=== PATIENT | male | born 1995 | race Caucasian/White ===

== ENCOUNTER → 2017-02-16 | Outpatient (CLI) | payer BC ==
--- NOTE | 2017-02-16 14:58 | DIAGNOSTIC IMAGING REPORT ---
MRI OF THE RIGHT KNEE WITHOUT CONTRAST CLINICAL HISTORY: Right knee injury with laxity. Previous ACL reconstruction. COMPARISON STUDY: None. TECHNIQUE: Utilizing a 1.5 Zee magnet and dedicated coil, multiplanar, multiecho imaging of the right knee was performed without intravenous or intraarticular contrast. FINDINGS: Alignment of the right knee is anatomic. No joint effusion is present. There is no marrow edema or marrow replacement. The anterior cruciate ligament graft is intact. The posterior cruciate ligament is intact. The medial collateral ligament and lateral collateral ligament complex are also intact. There is mild chondrosis of the lateral femoral condyle. No full-thickness chondrosis is identified within the 3 compartments. There is no evidence for fracture. The medial meniscus is somewhat diminutive but no medial meniscal tear is identified. There is subtle irregularity of the undersurface of the posterior horn of the lateral meniscus. Multiple foci of susceptibility artifact are postsurgical. IMPRESSION: 1. Intact ACL graft. 2. No fracture or joint effusion of the right knee. 3. Minimal irregularity of the undersurface of the posterior horn of the lateral meniscus which may reflect a subtle lateral meniscal tear. 4. Mild chondrosis of the lateral femoral condyle. Electronically signed by: Russ Mcqueen M.D. 02/16/2017 2:57 PM Dictated Date/Time: 02/16/2017 2:49 PM
== END | disposition home or self-care (01) ==
LOC: C.MRI 13:45
PROVIDERS: ATTEND Physician Assistant
DX: S89.91XA Unspecified injury of right lower leg, initial encounter (principal); X58.XXXA Exposure to other specified factors, initial encounter

== ENCOUNTER 2017-09-07 23:46 | Emergency (ER) | payer BC ==
[~2017-09-07] VITALS: Ht 175.3 cm; Wt 88.3 kg
[2017-09-07 23:58] VITALS: TEMP 36.8; Ht 175.3 cm; Wt 88.3 kg
[2017-09-08] MEDS ORDERED: ONDANSETRON INJ 2 MG/ML 2 ML VIAL IV STA (00:14)
[2017-09-08] MEDS ORDERED: SODIUM CHLORIDE 0.9% 1000ML 1,000 ML IV STA ×2 (00:14→01:28)
[2017-09-08 00:47] LABS: BASO % 0.1 %; BASO ABS # 0.02 K/uL (0-0.2); EOS % 0.3 %; EOS ABS # 0.05 K/uL (0-0.5); HEMATOCRIT 48.3 % (42-52); HEMOGLOBIN 17.8 g/dL (14.0-18.0); IG# 0.06 K/uL (0.00-0.02); LYMPH % 2.4 %; LYMPH ABS # 0.38 K/uL (1.2-3.4); MEAN CELL VOLUME 91.1 fL (80-100); MEAN CORPUSCULAR HEMOGLOBIN 33.6 pg (25-34); MEAN CORPUSCULAR HGB CONC 36.9 g/dl (32-36); MONO % 7.1 %; MONO ABS # 1.15 K/uL (0.11-0.59); NEUT % 89.7 %; NEUT ABS # 14.45 K/uL (1.4-6.5); PLATELET COUNT 262 K/uL (130-400); RED CELL DISTRIBUTION WIDTH CV 13.2 % (11.5-14.5); RED CELL DISTRIBUTION WIDTH SD 43.6 fL (36.4-46.3); WHITE BLOOD COUNT 16.11 K/uL (4.8-10.8)
[2017-09-08 01:05] LABS: ALBUMIN 4.6 gm/dl (3.4-5.0); CALCIUM 9.4 mg/dl (8.5-10.1); CREATININE 1.11 mg/dl (0.60-1.40); POTASSIUM 4.4 mmol/L (3.5-5.1)
[2017-09-08 01:07] LABS: TOTAL PROTEIN 8.4 gm/dl (6.4-8.2)
[2017-09-08] MEDS ORDERED: ONDANSETRON HOME PACK 4MG OD TAB PO ONE (02:45)
[2017-09-08] MEDS ORDERED: ONDA4TAB10 SL (02:49)
--- NOTE | 2017-09-08 02:50 | EMERGENCY ROOM VISIT NOTE ---
History First contact with patient: 00:05 Chief Complaint: ABDOMINAL PAIN Stated Complaint: STOMACH HURTS, NAUSEA, DIARRHEA History of Present Illness The patient is a 22 year old male who presents to the Emergency Room with complaints of nausea, vomiting and diarrhea. The patient reports that he was at [facility] [employer] training he began to have some generalized abdominal cramping and discomfort approximately 8 hours ago. He states that approximately 5 hours after the cramping started, he developed vomiting and diarrhea. He has had several episodes of both vomiting and diarrhea since then. He states he is still slightly nauseous. He feels very tired. He states that the abdominal cramping has been intermittent and he rates his discomfort a 3/10. He has not been able to tolerate anything by mouth. He states that 1 of his fellow [facility] [facility] members is also sick with similar symptoms. He denies any urinary symptoms or fevers. He states that he was feeling well until symptoms started today. Review of Systems A complete 10 point review of systems was reviewed with the patient with pertinent positives and negatives as per history of present illness. All else were negative. Past Medical/Surgical History Medical Problems: (1) No significant active problems Social History Smoking Status: Never Smoker Occupation Status: [employer] student Current/Historical Medications Scheduled Ondasetron Odt (Zofran Odt), 4 MG SL Q6H Physical Exam Vital Signs Date Time Temp Pulse Resp B/P (MAP) Pulse Ox O2 Delivery O2 Flow Rate FiO2 09/08/17 02:58 73 20 134/85 100 09/08/17 01:18 78 20 143/83 100 Room Air 09/07/17 23:58 36.8 95 18 141/80 97 Room Air Physical Exam VITALS: Vitals are noted on the nurse's note and reviewed by myself. Vital signs stable. GENERAL: This is a 22-year-old male, in no acute distress, nondiaphoretic, well- developed well-nourished. SKIN: The skin was without rashes. EARS: External auditory canals clear, tympanic membranes pearly tamayo without erythema or effusion bilaterally. EYES: Pupils equal round and reactive to light and accommodation. MOUTH: Mucous membranes moist. Tonsils are not enlarged. Pharynx without erythema or exudate. HEART: Regular rate and rhythm without murmurs gallops or rubs. LUNGS: Clear to auscultation bilaterally without wheezes, rales or rhonchi. ABDOMEN: Positive bowel sounds x 4. Soft, nontender to palpation. NEURO: Patient was alert and oriented to person place and time. Medical Decision & Procedures Laboratory Results 09/08/17 00:33 Red Blood Count 5.30, Mean Corpuscular Volume 91.1, Mean Corpuscular Hemoglobin 33.6, Mean Corpuscular Hemoglobin Concent 36.9, Mean Platelet Volume 10.0, Neutrophils (%) (Auto) 89.7, Lymphocytes (%) (Auto) 2.4, Monocytes (%) (Auto) 7.1, Eosinophils (%) (Auto) 0.3, Basophils (%) (Auto) 0.1, Neutrophils # (Auto) 14.45, Lymphocytes # (Auto) 0.38, Monocytes # (Auto) 1.15, Eosinophils # (Auto) 0.05, Basophils # (Auto) 0.02 09/08/17 00:33 Test 09/08/17 00:33 09/08/17 01:40 White Blood Count 16.11 K/uL (4.8-10.8) Red Blood Count 5.30 M/uL (4.7-6.1) Hemoglobin 17.8 g/dL (14.0-18.0) Hematocrit 48.3 % (42-52) Mean Corpuscular Volume 91.1 fL (80-100) Mean Corpuscular Hemoglobin 33.6 pg (25-34) Mean Corpuscular Hemoglobin Concent 36.9 g/dl (32-36) Platelet Count 262 K/uL (130-400) Mean Platelet Volume 10.0 fL (7.4-10.4) Neutrophils (%) (Auto) 89.7 % Lymphocytes (%) (Auto) 2.4 % Monocytes (%) (Auto) 7.1 % Eosinophils (%) (Auto) 0.3 % Basophils (%) (Auto) 0.1 % Neutrophils # (Auto) 14.45 K/uL (1.4-6.5) Lymphocytes # (Auto) 0.38 K/uL (1.2-3.4) Monocytes # (Auto) 1.15 K/uL (0.11-0.59) Eosinophils # (Auto) 0.05 K/uL (0-0.5) Basophils # (Auto) 0.02 K/uL (0-0.2) RDW Standard Deviation 43.6 fL (36.4-46.3) RDW Coefficient of Variation 13.2 % (11.5-14.5) Immature Granulocyte % (Auto) 0.4 % Immature Granulocyte # (Auto) 0.06 K/uL (0.00-0.02) Anion Gap 8.0 mmol/L (3-11) Est Creatinine Clear Calc Drug Dose 116.8 ml/min Estimated GFR () 110.2 Estimated GFR (Non- 95.1 BUN/Creatinine Ratio 19.4 (10-20) Calcium Level 9.4 mg/dl (8.5-10.1) Total Bilirubin 2.7 mg/dl (0.2-1) Aspartate Amino Transf (AST/SGOT) 68 U/L (15-37) Alanine Aminotransferase (ALT/SGPT) 110 U/L (12-78) Alkaline Phosphatase 102 U/L (45-117) Total Creatine Kinase 1429 U/L (39-308) Total Protein 8.4 gm/dl (6.4-8.2) Albumin 4.6 gm/dl (3.4-5.0) Globulin 3.8 gm/dl (2.5-4.0) Albumin/Globulin Ratio 1.2 (0.9-2) Urine Color ORANGE Urine Appearance CLEAR (CLEAR) Urine pH 5.0 (4.5-7.5) Urine Specific Pettigrew 1.033 (1.000-1.030) Urine Protein NEG (NEG) Urine Glucose (UA) NEG (NEG) Urine Ketones 4+ (NEG) Urine Occult Blood NEG (NEG) Urine Nitrite NEG (NEG) Urine Bilirubin NEG (NEG) Urine Urobilinogen NEG (NEG) Urine Leukocyte Esterase NEG (NEG) Medications Administered Medications (Trade) Dose Ordered Sig/Greta Route Start Time Stop Time Status Last Admin Dose Admin Sodium Chloride 1,000 ml @ 999 mls/hr Q1H1M STAT IV 09/08/17 00:14 09/08/17 01:14 DC 09/08/17 00:14 999 MLS/HR Ondansetron HCl (Zofran Inj) 4 mg NOW STAT IV 09/08/17 00:14 09/08/17 00:21 DC 09/08/17 00:14 4 MG Sodium Chloride 1,000 ml @ 999 mls/hr Q1H1M STAT IV 09/08/17 01:28 09/08/17 02:28 DC 09/08/17 01:28 999 MLS/HR Ondansetron HCl (ZOFRAN ODT 4MG Home Pack) 1 homepack UD ONCE PO 09/08/17 02:45 09/08/17 02:46 DC 09/08/17 02:45 1 HOMEPACK ED Course The patient was evaluated as above. Labs were drawn and IV access was obtained. Patient was medicated with 4 mg Zofran and 2 L normal saline solution. Patient was reevaluated and stated that he felt significantly better. His nausea and abdominal pain have resolved. He was able to tolerate Powerade by mouth. Repeat abdominal exam was performed at this time and revealed no tenderness. Discharge instructions were reviewed with the patient. The patient verbalized understanding of my assessment and treatment plan and was discharged home in good condition. Medical Decision Differential diagnosis includes gastroenteritis, foodborne illness, cholecystitis, appendicitis, colitis, diverticulitis, among others. The patient is a 22-year-old male who presents today complaining of nausea, vomiting and diarrhea. Labs revealed leukocytosis of 16,000. Urinalysis was not suggestive of infection, but was remarkable for 4+ ketones. Patient was found to have elevated bilirubin at 2.7. AST and ALT mildly elevated at 68 and 110. Creatinine kinase was elevated at 1429. This is all likely secondary to viral gastroenteritis. Patient was hydrated with 2 L and felt significantly improved after antiemetics. Serial abdominal exams were performed and the patient had no abdominal tenderness on exam. He was advised to have these abnormalities rechecked by [facility] within 1-2 weeks. He was advised to stay well-hydrated and keep a bland diet. He was given a home pack and prescription of Zofran. The patient's case was reviewed with Dr. Adam, ED attending physician, who agreed with my assessment and treatment plan. Based on the patient's presentation and work up, I feel the patient is stable for outpatient treatment. The patient was educated to return to the emergency department for any worsening of their current condition or new/concerning symptoms. He will follow up with [facility]. Medication Reconcilliation Current Medication List: was personally reviewed by me Blood Pressure Screening Patient's blood pressure: Elevated blood pressure Blood pressure disposition: Elevated BP felt to be situational Impression Primary Impression: Nausea, vomiting, and diarrhea Departure Information Dispostion Home / Self-Care Condition GOOD Prescriptions Ondasetron Odt (ZOFRAN ODT) 4 Mg Tab 4 MG SL Q6H for Nausea, #12 TAB Prov: Kerri Dewitt .ADEOLA 09/08/17 Referrals [facility] (PCP) Patient Instructions My [facility] Additional Instructions You have been prescribed Zofran to be used for any nausea or vomiting. Take as prescribed. For pain control, you can use the following [id number] medicines (if >12 yo): - Regular strength (325mg/tab) Tylenol (acetaminophen) 2 tabs every 4-6 hours as needed. Do not exceed 12 tablets in a 24 hour period. Avoid taking more than 4 grams (4000 mg) of Tylenol per day. This includes any other sources of acetaminophen you may take on a regular basis. - Regular strength (200 mg/tab) Advil (ibuprofen) 1-2 tabs every 4-6 hours as needed. Do not exceed a dose of 3200 mg per day. Rest and drink plenty of fluids. Drink frequent small sips of fluids to stay well-hydrated. Keep a bland diet until you are feeling better. Follow-up with [facility] for recheck on Sunday. You will need to have your bilirubin rechecked as it was slightly elevated today. Return to the emergency department with persistent vomiting despite the medication, abdominal pain, fevers, passing out or weakness, or any other new/ concerning symptoms.
[2017-09-08 02:58] VITALS: BP 134/85; PULSE 73; O2SAT 100
== END 2017-09-08 02:59 | disposition home or self-care (01) ==
LOC: C.EDB 23:49 → C.EDC 09-08 02:59
DX: R11.2 Nausea with vomiting, unspecified (principal); R19.7 Diarrhea, unspecified